=== PATIENT | female | born 1995 | race American Indian/Alaskan Native ===

== ENCOUNTER 2020-09-16 09:07 | Emergency (ER) | payer OTHER ==
--- NOTE | 2020-09-16 11:05 | XRay Report ---
XR chest routine 2V INDICATION / CLINICAL INFORMATION: Chest Pain COMPARISON: None available. FINDINGS: SUPPORT DEVICES: None. HEART / MEDIASTINUM: No significant abnormality. LUNGS / PLEURA: Small left basilar parenchymal opacity. Costophrenic sulci are sharp. No pneumothorax . ADDITIONAL FINDINGS: No significant additional findings. IMPRESSION: 1. Small left basilar parenchymal opacity which could represent airspace disease such as pneumonia. Signer Name: Thony Jerez MD Signed: 09/16/2020 11:00 AM Workstation Name: [id number]
--- NOTE | 2020-09-16 11:45 | Emergency Department Report ---
ED General Adult HPI - General Chief complaint: Chest Pain Stated complaint: BODY/CHEST/HEADACHE PAIN Time Seen by Provider: 09/16/20 11:24 Source: patient Mode of arrival: Ambulatory Limitations: No Limitations - History of Present Illness Initial comments: This is a 25-year-old obese female she is complaining of cough x1 week chest pain with deep breaths and cough. Loss of taste x1 week nausea and vomiting x1 week she denies any recent travels she denies any chance of being . She she lives at home with her father who is a flatbed truck driver . He is in the emergency room now with similar symptoms, she denies any past medical history she is a non-smoker -: week(s) (1) Location: chest ( with cough ) Radiation: non-radiation Consistency: intermittent Improves with: none Associated Symptoms: chest pain (With cough and deep breaths), cough, loss of appetite, malaise, nausea/vomiting, shortness of breath (With cough). denies: fever/chills, headaches, rash, seizure Treatments Prior to Arrival: none - Related Data Previous Rx's Medication Instructions Recorded Last Taken Type Amoxicillin [Trimox CAP] 1,000 mg PO Q8H 7 Days #42 capsule 09/16/20 Unknown Rx Azithromycin [Zithromax Z-OLEG] 0 mg PO DAILY #1 pack 09/16/20 Unknown Rx Benzonatate [Tessalon Perles] 100 mg PO Q8HR PRN #20 capsule 09/16/20 Unknown Rx Allergies Allergy/AdvReac Type Severity Reaction Status Date / Time No Known Allergies Allergy Unverified 09/16/20 09:18 ED Review of Systems ROS: Stated complaint: BODY/CHEST/HEADACHE PAIN Other details as noted in HPI Constitutional: denies: chills, fever, weakness, other Eyes: denies: eye pain, eye discharge, vision change ENT: denies: ear pain, throat pain, dental pain, hearing loss, epistaxis, congestion Respiratory: cough Cardiovascular: chest pain (With cough and deep breaths). denies: dyspnea on exertion Endocrine: denies: excessive sweating, flushing, intolerance to cold, intolerance to heat, increased hunger, increased thirst, increased urine, unexplained weight gain Gastrointestinal: nausea, vomiting. denies: abdominal pain, constipation Genitourinary: denies: urgency, dysuria Skin: denies: rash Neurological: denies: headache Psychiatric: denies: anxiety Hematological/Lymphatic: denies: as per HPI, easy bleeding ED Past Medical Hx - Past Medical History Previous Medical History?: No - Surgical History Past Surgical History?: No - Social History Smoking Status: Never Smoker - Medications Home Medications: Home Medications Medication Instructions Recorded Confirmed Last Taken Type Amoxicillin [Trimox CAP] 1,000 mg PO Q8H 7 Days #42 capsule 09/16/20 Unknown Rx Azithromycin [Zithromax Z-OLEG] 0 mg PO DAILY #1 pack 09/16/20 Unknown Rx Benzonatate [Tessalon Perles] 100 mg PO Q8HR PRN #20 capsule 09/16/20 Unknown Rx ED Physical Exam - General Limitations: No Limitations General appearance: alert, in no apparent distress, other (obese) - Head Head exam: Present: atraumatic - Eye Eye exam: Present: normal appearance. Absent: conjunctival injection - ENT ENT exam: Present: normal orophraynx, mucous membranes moist, TM's normal bilaterally - Neck Neck exam: Absent: normal inspection, lymphadenopathy - Respiratory Respiratory exam: Present: normal lung sounds bilaterally. Absent: respiratory distress, wheezes, rales, rhonchi, chest wall tenderness - Cardiovascular Cardiovascular Exam: Present: regular rate, normal rhythm, normal heart sounds - GI/Abdominal GI/Abdominal exam: Present: soft. Absent: distended, tenderness - External exam: Present: normal external exam - Extremities Exam Extremities exam: Present: normal inspection. Absent: full ROM - Back Exam Back exam: Present: normal inspection - Neurological Exam Neurological exam: Present: alert, altered - Psychiatric Psychiatric exam: Present: normal affect - Skin Skin exam: Present: warm, dry, intact, normal color ED Course Vital Signs 09/16/20 09/16/20 09:17 13:19 Temperature 98.8 F 98.6 F Pulse Rate 91 H 84 Respiratory 18 14 Rate Blood Pressure 141/94 131/88 O2 Sat by Pulse 98 99 Oximetry - Reevaluation(s) Reevaluation #1: 09/16/20 12:46 Patient in no acute distress respirations were easy unlabored currently with no pain. She denies any nausea and vomiting at this time 09/16/20 ED Medical Decision Making - Lab Data Result diagrams: 09/16/20 11:59 09/16/20 11:59 - EKG Data EKG shows normal: sinus rhythm (Rate of 87) Rate: normal - EKG Data When compared to previous EKG there are: previous EKG unavailable Interpretation: normal EKG, other (Probable left atrial enlargement) - Radiology Data Radiology results: report reviewed Chest x-ray shows a small left basilar parenchymal opacity - Medical Decision Making 25-year-old female her presentation and examination is most highly suspicious of Covid infection. There is low specific suspicion for cardiac injury patient has no comorbidities . her chest pain is with cough and inspiration. she has had the symptoms for 1 week. Currently her oxygenation drops to from 100 to 97% and heart rates in the 80s to low 102. She is afebrile. she has no history of recent long distance travel . she denies no recent trauma no recent surgeries she lives with her father who has similar symptoms . Chest x-ray shows a small left basilar parenchymal opacity. Patient does have a primary care doctor at [facility]. Per nurses note Walking the patient's O2 was 100% on RA HR was 82, while walking the O2 droped to 97% on RA and the HR increased to 102. - Differential Diagnosis COVID-19 infection, influenza, Pneumonia Critical Care Time: No Critical care attestation.: If time is entered above; I have spent that time in minutes in the direct care of this critically ill patient, excluding procedure time. ED Disposition Clinical Impression: Suspected COVID-19 virus infection Disposition: DC-01 TO HOME OR SELFCARE Is pt being admited?: No Does the pt Need Aspirin: No Condition: Stable Instructions: Contact Precautions, Airborne Precautions, [id number], Infection Prevention in the Home Additional Instructions: You will need follow-up in the next 48 hours please follow-up at with your primary care doctor at [facility] or return to this emergency room in 2 days to get reexamined. Increase hydration drink at least 6 to 8 glasses of water daily. It is okay to take Tylenol as needed for headache or body pain. Get plenty of rest you may return sooner if you develop worsening symptoms such as difficulty breathing inability to keep fluids down. Patient given a list of community clinics where she can get tested for Covid Prescriptions: Benzonatate [Tessalon Perles] 100 mg PO Q8HR PRN #20 capsule PRN Reason: Cough Amoxicillin [Trimox CAP] 1,000 mg PO Q8H 7 Days #42 capsule Azithromycin [Zithromax Z-OLEG] 0 mg PO DAILY #1 pack Referrals: KRYSTAL ORDONEZ MD [Staff Physician] - 2-3 Days PRIMARY CAREMD [Primary Care Provider] - 2-3 Days Time of Disposition: 12:56
[2020-09-16 12:18] LABS: Basophils % (Auto) 1.3 % (0.0-1.8); Eosinophils % (Auto) 0.6 % (0.0-4.3); Hematocrit 38.7 % (30.3-42.9); Hemoglobin 13.2 gm/dl (10.1-14.3); Lymphocytes # (Auto) 1.5 K/mm3 (1.2-5.4); Lymphocytes % (Auto) 47.5 % (13.4-35.0); Mean Corpuscular HGB Conc 34 % (30-34); Mean Corpuscular Volume 86 fl (79-97); Monocytes # (Auto) 0.3 K/mm3 (0.0-0.8); Monocytes % (Auto) 9.9 % (0.0-7.3); Platelet Count 164 K/mm3 (140-440); Red Blood Count 4.51 M/mm3 (3.65-5.03); Red Cell Distribution Width 13.6 % (13.2-15.2)
[2020-09-16 12:42] LABS: Alanine Aminotransferase 16 units/L (7-56); BUN/Creatinine Ratio 9; Blood Urea Nitrogen 6 mg/dL (7-17); Calcium 8.9 mg/dL (8.4-10.2); Hemolysis Index 7
[2020-09-16 13:24] VITALS: BP 131/88
== END 2020-09-16 13:32 | disposition home or self-care (01) ==
LOC: ED 09:07
DX: R07.9 Chest pain, unspecified (principal); R51.9 Headache, unspecified; R06.02 Shortness of breath; R05 Cough; R11.2 Nausea with vomiting, unspecified; Z20.828 Contact with and (suspected) exposure to other viral communicable diseases; Z79.899 Other long term (current) drug therapy
CPT/HCPCS: 36415; 71046; 80053; 85025; 93005